=== PATIENT | female | born 1975 | race African-American/Black ===

== ENCOUNTER → 2017-06-29 | Outpatient (CLI) | payer MEDICARE, MEDICAID ==
--- NOTE | 2017-06-29 15:52 | RADIOLOGY REPORT (SQ) ---
EXAM DESCRIPTION: CHEST PA/LATERAL COMPLETED DATE/TIME: 06/29/2017 3:22 pm REASON FOR STUDY: COUGH COMPARISON: 08/02/2015 EXAM PARAMETERS: NUMBER OF VIEWS: two views TECHNIQUE: Digital Frontal and Lateral radiographic views of the chest acquired. RADIATION DOSE: NA LIMITATIONS: none FINDINGS: LUNGS AND PLEURA: Stable areas of scarring in the left lower lobe. MEDIASTINUM AND HILAR STRUCTURES: No masses or contour abnormalities. HEART AND VASCULAR STRUCTURES: Heart normal size. No evidence for failure. BONES: No acute findings. HARDWARE: Clips left hilum. OTHER: No other significant finding. IMPRESSION: No acute findings in the chest. TECHNICAL DOCUMENTATION: JOB ID: [id number] [employer]- All Rights Reserved
== END ==
LOC: OD 15:02
PROVIDERS: ATTEND Physician Assistant
DX: R05 Cough (principal)
CPT/HCPCS: 71020

== ENCOUNTER → 2020-08-26 | Outpatient (CLI) | payer MEDICARE, MEDICAID ==
--- NOTE | 2020-08-26 16:27 | RADIOLOGY REPORT (SQ) ---
EXAM DESCRIPTION: CHEST PA/LATERAL IMAGES COMPLETED DATE/TIME: 08/26/2020 4:16 pm REASON FOR STUDY: (R05) COUGH COMPARISON: 08/02/2015. EXAM PARAMETERS: NUMBER OF VIEWS: two views TECHNIQUE: Digital Frontal and Lateral radiographic views of the chest acquired. RADIATION DOSE: NA LIMITATIONS: none FINDINGS: LUNGS AND PLEURA: Mild scarring in the left base. No evidence of pulmonary edema or pneum onia. MEDIASTINUM AND HILAR STRUCTURES: No masses or contour abnormalities. HEART AND VASCULAR STRUCTURES: Heart normal size. No evidence for failure. BONES: No acute findings. HARDWARE: None in the chest. OTHER: No other significant finding. IMPRESSION: NO SIGNIFICANT RADIOGRAPHIC FINDING IN THE CHEST. TECHNICAL DOCUMENTATION: JOB ID: [id number] 2010 [employer]- All Rights Reserved Reading location - IP/workstation name: [email or web address]
[2020-08-26 16:52] LABS: ABSOLUTE BASOPHILS # (AUTO) 0.1 10^3/uL (0.0-0.2); ABSOLUTE EOSINOPHILS # (AUTO) 0.1 10^3/uL (0.0-0.6); ABSOLUTE LYMPHOCYTES (AUTO) 3.1 10^3/uL (0.5-4.7); ABSOLUTE MONOCYTES (AUTO) 0.4 10^3/uL (0.1-1.4); ABSOLUTE NEUT (AUTO) 5.6 10^3/uL (1.7-8.2); BASOPHILS % (AUTO) 0.6 % (0-2); EOSINOPHILS % (AUTO) 0.9 % (0-6); HEMATOCRIT 37.2 % (36.0-47.0); LYMPHOCYTES % (AUTO) 33.6 % (13-45); MEAN CORPUSCULAR HEMOGLOBIN 22.1 pg (27.0-33.4); MEAN CORPUSCULAR HGB CONC 32.4 g/dL (32.0-36.0); MEAN CORPUSCULAR VOLUME 68 fl (80-97); MONOCYTES % (AUTO) 3.9 % (3-13); PLATELET COUNT 234 10^3/uL (150-450); RED BLOOD COUNT 5.45 10^6/uL (3.72-5.28); RED CELL DISTRIBUTION WIDTH 16.3 % (11.5-14.0); TOTAL CELLS COUNTED % (AUTO) 100 %; WHITE BLOOD COUNT 9.1 10^3/uL (4.0-10.5)
[2020-08-26 17:08] LABS: ALBUMIN 3.7 g/dL (3.5-5.0); ALKALINE PHOSPHATASE 70 U/L (38-126); ANION GAP 9 (5-19); ASPARTATE AMINO TRANSFERASE 15 U/L (14-36); BILIRUBIN,DIRECT 0.2 mg/dL (0.0-0.4); BILIRUBIN,TOTAL 0.5 mg/dL (0.2-1.3); BLOOD UREA NITROGEN 4 mg/dL (7-20); CALCIUM 9.2 mg/dL (8.4-10.2); CARBON DIOXIDE 27 mmol/L (22-30); CHLORIDE 103 mmol/L (98-107); GLUCOSE 113 mg/dL (75-110); POTASSIUM 3.8 mmol/L (3.6-5.0); TOTAL PROTEIN 6.1 g/dL (6.3-8.2)
== END ==
LOC: OD 15:40
PROVIDERS: ATTEND Physician Assistant
DX: R06.02 Shortness of breath (principal); R05 Cough
CPT/HCPCS: 36415; 71046; 80053; 84484; 85025; 85379

== ENCOUNTER → 2020-09-03 | Outpatient (CLI) | payer MEDICARE, MEDICAID ==
--- NOTE | 2020-09-03 12:16 | RADIOLOGY REPORT (SQ) ---
EXAM DESCRIPTION: CT HEAD WITHOUT IMAGES COMPLETED DATE/TIME: 09/03/2020 12:00 pm REASON FOR STUDY: R51.9 HEADACHE, UNSPECIFIED, R26.89 OTHER ABNORMALITIES OF GAIT AND MOBILIT R51.9 HEADACHE, UNSPECIFIED R26.89 OTHER ABNORMALITIES OF GAIT AND MOBILITY COMPARISON: None. TECHNIQUE: Axial images acquired through the brain without intravenous contrast. Images reviewed wi th bone, brain and subdural windows. Additional sagittal and coronal reconstructions were generated. Images stored on PACS. All CT scanners at this facility use dose modulation, iterative reconstruction, and/or weight based d osing when appropriate to reduce radiation dose to as low as reasonably achievable (ALARA). [facility]: Dose Right [facility]: CareDose [facility]: Dose Right [facility]: Teradose 4D [facility]: Vimagino RADIATION DOSE: CT Rad equipment meets quality standard of care and radiation dose reduction techniq ues were employed. CTDIvol: 48.6 mGy. DLP: 856 mGy-cm. mGy. LIMITATIONS: None. FINDINGS: VENTRICLES: Normal size and contour. CEREBRUM: No masses. No hemorrhage. No midline shift. No evidence for acute infarction. Normal gra y/white matter differentiation. No areas of low density in the white matter. CEREBELLUM: No masses. No hemorrhage. No alteration of density. No evidence for acute infarction. EXTRAAXIAL SPACES: No fluid collections. No masses. ORBITS AND GLOBE: No intra- or extraconal masses. Normal contour of globe without masses. CALVARIUM: No fracture. PARANASAL SINUSES: No fluid or mucosal thickening. SOFT TISSUES: No mass or hematoma. OTHER: No other significant finding. IMPRESSION: NORMAL BRAIN CT WITHOUT CONTRAST. EVIDENCE OF ACUTE STROKE: NO. COMMENT: Quality ID # [id number]: Final reports with documentation of one or more dose reduction techniques (e.g., Automated exposure control, adjustment of the mA and/or kV according to patient size, use of iterative reconstruction technique) TECHNICAL DOCUMENTATION: JOB ID: [id number] 2010 [employer]- All Rights Reserved Reading location - IP/workstation name: [email or web address]
== END ==
LOC: RAD 11:27
PROVIDERS: ATTEND Physician Assistant
DX: R51.9 Headache, unspecified (principal); R26.89 Other abnormalities of gait and mobility
CPT/HCPCS: 70450

== ENCOUNTER 2020-10-11 20:20 | Emergency (ER) | payer MEDICARE, MEDICAID ==
--- NOTE | 2020-10-11 21:44 | ER Document Report ---
ED Medical Screen (RME) - General Chief Complaint: Chest Pain > 30 Stated Complaint: SHOULDER PAIN, NECK PAIN Time Seen by Provider: 10/11/20 21:37 Primary Care Provider: WAQAR DEVRIES PA [Primary Care Provider] - Follow up as needed Mode of Arrival: Ambulatory Information source: Patient Notes: Patient is a 45-year-old female comes emergency room complaining of left-sided anterior chest pain with radiation to the neck shoulder back and arm. Patient has had a recent significant past medical history and that Dr. Tariq had placed her on a Holter monitor on this past Wednesday she turned it in on Wednesday. According to patient he saw a couple of abnormalities there that he referred her over to [facility] and they she has not heard back from them as of yet. Patient states that what started her with Dr. Tariq and the Holter monitor is that she had this discomfort in her chest. She denies any feelings of heart racing but she just does not have felt right. She denies any family history of heart problems. Patient does admit to smoking. She has not been on any long trips or have injury to her lower extremities but does state that she has had some bilateral lower extremity swelling. Physical examination: Patient is a well-nourished well-developed 45-year-old female no apparent distress on examination. Cardiac: Patient shows a rate of 94 bpm on monitor with no murmurs auscultated. Patient's blood pressure is 157/88. Lungs: Bilateral breath sounds breath sounds increased clear to auscultation. Abdomen: Bowel sounds are present 4 quads nontender to palpate. Chest: Palpation of patient's anterior chest the shoulder and neck does not show any reproducible tenderness. I have greeted and performed a rapid initial assessment of this patient. A comprehensive ED assessment and evaluation of the patient, analysis of test results and completion of the medical decision making process will be conducted by additional ED providers. Dictation of this chart was performed using voice recognition software; therefore, there may be some unintended grammatical errors. TRAVEL OUTSIDE OF THE [place] IN LAST 30 DAYS: No - Related Data Allergies/Adverse Reactions: No Known Allergies Allergy (Unverified 03/26/14 20:28) Home Medications: atenolol 50mg. simvistatin 40mg. lamictal 25mg. latudia 20mg. klonazapam 1mg prn. folic acid. b12 shots. vit d. motrin 800mg prn Past Medical History - Social History Chew tobacco use (# tins/day): No Frequency of alcohol use: Occasional Drug Abuse: Marijuana - Past Medical History Cardiac Medical History: Reports: Hx Hypertension Pulmonary Medical History: Reports: Hx Asthma Psychiatric Medical History: Reports: Hx Bipolar Disorder, Hx Depression Past Surgical History: Reports: Hx Section, Hx Orthopedic Surgery Physical Exam - Vital signs Vitals: Temp Pulse Resp BP Pulse Ox 98.2 F 94 20 151/88 H 100 10/11/20 20:37 10/11/20 20:37 10/11/20 20:37 10/11/20 20:37 10/11/20 20:37 Course - Vital Signs Vital signs: Temp Pulse Resp BP Pulse Ox 98.2 F 94 20 151/88 H 100 10/11/20 21:22 10/11/20 20:37 10/11/20 20:37 10/11/20 20:37 10/11/20 20:37 Doctor's Discharge - Discharge Referrals: WAQAR DEVRIES PA [Primary Care Provider] - Follow up as needed
[2020-10-11 22:04] LABS: ABSOLUTE BASOPHILS # (AUTO) 0.1 10^3/uL (0.0-0.2); ABSOLUTE EOSINOPHILS # (AUTO) 0.2 10^3/uL (0.0-0.6); ABSOLUTE LYMPHOCYTES (AUTO) 3.8 10^3/uL (0.5-4.7); ABSOLUTE MONOCYTES (AUTO) 0.8 10^3/uL (0.1-1.4); ABSOLUTE NEUT (AUTO) 7.9 10^3/uL (1.7-8.2); BASOPHILS % (AUTO) 0.5 % (0-2); EOSINOPHILS % (AUTO) 1.3 % (0-6); HEMATOCRIT 37.4 % (36.0-47.0); MEAN CORPUSCULAR VOLUME 69 fl (80-97); MONOCYTES % (AUTO) 6.5 % (3-13); PLATELET COUNT 240 10^3/uL (150-450); RED BLOOD COUNT 5.43 10^6/uL (3.72-5.28); RED CELL DISTRIBUTION WIDTH 16.3 % (11.5-14.0); SEGMENTED NEUTROPHILS % (AUTO) 61.7 % (42-78); TOTAL CELLS COUNTED % (AUTO) 100 %; WHITE BLOOD COUNT 12.8 10^3/uL (4.0-10.5)
[2020-10-11 22:09] LABS: APPEARANCE,URINE SLIGHTLY-CLOUDY; BILIRUBIN,URINE NEGATIVE (NEGATIVE); COLOR,URINE YELLOW; GLUCOSE, URINE NEGATIVE (NEGATIVE); KETONES,URINE NEGATIVE (NEGATIVE); LEUKOCYTE ESTERASE,URINE NEGATIVE (NEGATIVE); NITRITE,URINE NEGATIVE (NEGATIVE); PROTEIN,URINE NEGATIVE (NEGATIVE); UROBILINOGEN,URINE NEGATIVE mg/dL (<2.0)
[2020-10-11 22:21] LABS: ALBUMIN 4.2 g/dL (3.5-5.0); ALKALINE PHOSPHATASE 67 U/L (38-126); ANION GAP 7 (5-19); ASPARTATE AMINO TRANSFERASE 14 U/L (14-36); BILIRUBIN,TOTAL 0.3 mg/dL (0.2-1.3); BLOOD UREA NITROGEN 7 mg/dL (7-20); CALCIUM 9.9 mg/dL (8.4-10.2); CARBON DIOXIDE 30 mmol/L (22-30); CHLORIDE 104 mmol/L (98-107); GLUCOSE 104 mg/dL (75-110); POTASSIUM 3.6 mmol/L (3.6-5.0); TOTAL PROTEIN 7.4 g/dL (6.3-8.2)
--- NOTE | 2020-10-11 22:38 | RADIOLOGY REPORT (SQ) ---
EXAM DESCRIPTION: CHEST SINGLE VIEW, October 11, 2020 9:59 PM CLINICAL HISTORY: Chest pain COMPARISON: None FINDINGS: Cardiac silhouette is within normal limits. There is no focal parenchymal or pleural disease. There is no acute osseous process visualized. IMPRESSION: No evidence of acute cardiopulmonary disease.
--- NOTE | 2020-10-12 03:02 | ER Document Report ---
ED General - General Chief Complaint: Chest Pain > 30 Stated Complaint: SHOULDER PAIN, NECK PAIN Time Seen by Provider: 10/11/20 21:37 Primary Care Provider: WAQAR DEVRIES PA [Primary Care Provider] - Follow up as needed BHAVIK BREWSTER MD [ACTIVE STAFF] - 10/18/20 Mode of Arrival: Ambulatory TRAVEL OUTSIDE OF THE [place] IN LAST 30 DAYS: No - HPI Onset: Just prior to arrival Onset/Duration: Sudden Quality of pain: Sharp Severity: Moderate Context: This is a 45-year-old female presenting to the emergency department complaining of left-sided anterior chest pain along with radiation into her neck, shoulder on the left side left back and left upper extremity. Patient states she has a history of high blood pressure and hyperlipidemia. Patient states that she has been placed on a Holter monitor recently and is scheduled to see Dr. Brewster with cardiology within the next few days. Patient states she is not having any discomfort at this time. Patient denies alleviating or exacerbating factors. Patient states that she is a smoker. Patient denies fever, chills, shortness of breath, history of COVID-19 infection, known exposure to Covid positive persons or persons under investigation for Covid. Patient denies history of DVT or PE. Patient states that the symptoms lasted for a few minutes and then resolved on their own. Associated symptoms: Other - See HPI Exacerbated by: Other - See HPI Relieved by: Other - See HPI Recently seen / treated by doctor: Yes - Related Data Allergies/Adverse Reactions: No Known Allergies Allergy (Unverified 03/26/14 20:28) Home Medications: atenolol 50mg. simvistatin 40mg. lamictal 25mg. latudia 20mg. klonazapam 1mg prn. folic acid. b12 shots. vit d. motrin 800mg prn Past Medical History - General Information source: Patient - Social History Smoking Status: Current Every Day Smoker Chew tobacco use (# tins/day): No Frequency of alcohol use: Occasional Drug Abuse: Marijuana Family History: Reviewed & Not Pertinent - Past Medical History Cardiac Medical History: Reports: Hx Hypertension Pulmonary Medical History: Reports: Hx Asthma Psychiatric Medical History: Reports: Hx Bipolar Disorder, Hx Depression Past Surgical History: Reports: Hx Section, Hx Orthopedic Surgery Review of Systems - Review of Systems Notes: Review of systems as below unless otherwise stated in HPI. CONSTITUTIONAL [No] fever, [No] chills. EYES [No] eye pain. ENT [No] URI symptoms, [No] sore throat, [No] ear pain. CARDIOVASCULAR [+] chest pain, [No] palpitations, [No] edema. RESPIRATORY [No] Cough, [No] SOB, [No] wheezing. GASTROINTESTINAL [No] abdominal pain, [No] nausea, [No] Diarrhea, [No] Vomiting, [No] constipation, [No] melena, [No] rectal bleeding. GENITOURINARY [No] dysuria, [No] urinary frequency, [No] hematuria, [No] urinary urgency, [No] vaginal discharge, [No] vaginal bleeding. MUSCULOSKELETAL [+] Back pain, shoulder neck and arm pain SKIN [No] Rash. NEUROLOGIC [No] Headache, [No] recent seizures, [No] paralysis,[No] parathesias. ENDOCRINE [No] polyuria. HEMO/LYMPATIC [No] easy brusing PSYCHIATRIC [No] depression. Physical Exam - Vital signs Vitals: Temp Pulse Resp BP Pulse Ox 98.2 F 94 20 151/88 H 100 10/11/20 20:37 10/11/20 20:37 10/11/20 20:37 10/11/20 20:37 10/11/20 20:37 - Notes Notes: CONSTITUTIONAL [Vital signs reviewed, Patient appears comfortable, Alert and oriented X 3, Normal stature.] HEAD [Atraumatic, Normocephalic.] EYES [Eyes are normal to inspection, No discharge from eyes, Extraocular muscles intact, Sclera are normal, Conjunctiva are normal.] ENT [External ears normal to inspection, Nose examination normal, Mouth normal to in spection.] NECK [Normal ROM, No jugular venous distention, No meningeal signs, ] RESPIRATORY CHEST [Chest is nontender, Breath sounds normal, No respiratory distress.] CARDIOVASCULAR [RRR, No murmurs, Normal S1 S2, No rub, No gallop.] ABDOMEN [Abdomen is nontender, No pulsatile masses, No other masses, Bowel sounds normal, No distension, No peritoneal signs, No hernias.] BACK [There is no CVA Tenderness, There is no tenderness to palpation, Normal inspection.] UPPER EXTREMITY [Inspection normal, No cyanosis, No clubbing, No edema, LOWER EXTREMITY [Inspection normal, No cyanosis, No clubbing, No edema, No calf tenderness, NEURO [No focal motor deficits, No focal sensory deficits, Speech normal.] SKIN [Skin is warm, Skin is dry, Skin is normal color.] PSYCHIATRIC [Normal affect. ] Course - Re-evaluation Re-evalutation: 10/12/20 03:09 Results of ED MSE discussed with patient. When asked if all of the patient's questions were answered and all of her concerns were addressed during this visit, patient answered in the affirmative. Emergency signs and symptoms, reasons to return to the emergency department discussed with patient. - Vital Signs Vital signs: Temp Pulse Resp BP Pulse Ox 98.2 F 66 20 133/80 H 99 10/12/20 01:23 10/12/20 02:15 10/12/20 01:23 10/12/20 02:15 10/12/20 01:23 - Laboratory Result Diagrams: 10/11/20 21:40 10/11/20 21:40 Laboratory results interpreted by me: 10/11/20 10/11/20 21:40 21:50 WBC 12.8 H RBC 5.43 H MCV 69 L MCH 22.0 L RDW 16.3 H Urine Blood MODERATE H - Diagnostic Test Radiology reviewed: Reports reviewed - EKG Interpretation by Me Additional EKG results interpreted by me: 10/12/20 03:09 EKG obtained on 10/11/2020 at 2210 hrs. was interpreted by this MD. Findings: Normal sinus rhythm, rate 67, normal axis, ND interval appears to be within normal limits, P waves preceding arrest complexes, QRS complexes appear narrow, QTC is 427, there are no obvious patterns of ST segment elevation, depression or reciprocal changes seen to suggest acute myocardial ischemia or infarction. Impression: Normal sinus rhythm with nonspecific ST segments. There is no prior EKG available for comparison. Discharge - Discharge Clinical Impression: Chest pain Qualifiers: Chest pain type: other chest pain Qualified Code(s): R07.89 - Other chest pain Condition: Stable Disposition: HOME, SELF-CARE Additional Instructions: Return to the Emergency Department without delay if any worse. Your evaluation in the emergency department today revealed no evidence of anything acute going on with your heart or your heart being related to the shoulder and neck discomfort you experienced. As discussed, keep track of your blood pressure 3 times a day with your new blood pressure machine. Be certain to follow-up with Dr. Brewster as planned. HOME CARE INSTRUCTIONS & INFORMATION: Thank you for choosing us for your medical needs. We hope you're satisfied with the care you received. After you leave, you must properly care for your problem and, at the same time, observe its progress. Any condition can change. Some illnesses can change rapidly over hours or days. If your condition worsens, return to the Emergency Department or see your physician promptly. ABOUT YOUR X-RAYS AND EKG'S: If you had an EKG or X-rays taken, they have been read by the Emergency Physician. The X-rays and EKG's will also be read by a Radiologist or Business Administration Program Chair within 24 hours. If discrepancies are noted, you will be notified by telephone. Please be certain the ED has a correct telephone number & address where you can be reached. Also, realize that some fractures or abnormalities do not show up on initial X-rays. If your symptoms continue, see your physician. ABOUT YOUR LABORATORY TEST: If you had laboratory tests, the results have been reviewed by the Emergency Physician. Some test results (for example cultures) may not be available for several days. You will be contacted if any test result shows you need additional treatment. Please be certain the ED has a correct telephone number and address where you can be reached. ABOUT YOUR MEDICATIONS: You will receive instructions on how to take your medicine on the prescription label you receive. Additional information may be provided by the Pharmacy. If you have questions afterwards, call the ED for clarification or further instructions. Some prescribed medications may cause drowsiness. Do not perform tasks such as driving a car or operating machinery without consulting your Pharmacist. If you feel you need a refill of pain medication, your condition will need re-evaluation. Please do not call for a refill of any medication. ABOUT YOUR SIGNATURE: Signature of this document acknowledges to followin. Understanding that you received emergency treatment and that you may be released before al medical problems are known or treated. Please be certain the ED has a correct phone number & address where you can be reached. 2. Acknowledgement that you will arrange for follow-up care as recommended. 3. Authorization for the Emergency Physician to provide information to your follow-up Physician in order to maximize your care. AT ANY TIME, IF YOUR SYMPTOMS CHANGE SIGNIFICANTLY OR WORSEN OR YOU DEVELOP NEW SYMPTOMS, RETURN TO THE EMERGENCY DEPARTMENT IMMEDIATELY FOR RE-EVALUATION. OUR GOAL IS TO PROVIDE EXCELLENT MEDICAL CARE! WE HOPE THAT WE HAVE MET YOUR EXPECTATIONS DURING YOUR EMERGENCY DEPARTMENT VISIT AND THAT YOU FEEL YOU HAVE RECEIVED EXCELLENT CARE! Chest Pain of Unclear Cause The exact cause of your chest pain isn't clear. Fortunately, there is no evidence of a dangerous medical condition. Further testing may be required to find the source of the pain. Most often, we find that this pain is coming from the chest wall -- the muscles or rib joints in the chest. But chest pain can come from the lung and lung lining, the esophagus, the heart valves or heart lining, and even the stomach or gallbladder. Rest. Eat lightly until the pain is gone. We may prescribe medicine for pain and inflammation. You should call the physician immediately if the pain radiates to the shoulder, jaw or arms; if you start to run a fever or develop a cough; or if you develop shortness of breath, or other new or alarming symptoms. Referrals: WAQAR DEVRIES PA [Primary Care Provider] - Follow up as needed BHAVIK BREWSTER MD [ACTIVE STAFF] - 10/18/20
[2020-10-12 03:09] VITALS: BP 134/84
== END 2020-10-12 03:09 | disposition home or self-care (01) ==
LOC: ER 20:20
DX: R07.89 Other chest pain (principal); M25.512 Pain in left shoulder; M54.2 Cervicalgia; M54.9 Dorsalgia, unspecified; M79.602 Pain in left arm; F17.200 Nicotine dependence, unspecified, uncomplicated; Z20.828 Contact with and (suspected) exposure to other viral communicable diseases; Z79.899 Other long term (current) drug therapy; I10 Essential (primary) hypertension; J45.909 Unspecified asthma, uncomplicated
CPT/HCPCS: 36415; 71045; 80053; 81001; 81025; 84484; 85025; 85379; 87086; 99284

== ENCOUNTER 2020-11-04 23:34 | Observation (INO) | payer MEDICARE, MEDICAID ==
[2020-11-05 01:23] LABS: ALKALINE PHOSPHATASE 71 U/L (38-126); ANION GAP 5 (5-19); ASPARTATE AMINO TRANSFERASE 15 U/L (14-36); BILIRUBIN,DIRECT 0.1 mg/dL (0.0-0.4); BILIRUBIN,TOTAL 0.4 mg/dL (0.2-1.3); BLOOD UREA NITROGEN 7 mg/dL (7-20); CALCIUM 9.9 mg/dL (8.4-10.2); CARBON DIOXIDE 33 mmol/L (22-30); CHLORIDE 101 mmol/L (98-107); CREATINE KINASE 70 U/L (30-135); GLUCOSE 88 mg/dL (75-110); POTASSIUM 3.9 mmol/L (3.6-5.0); TOTAL PROTEIN 7.4 g/dL (6.3-8.2)
[2020-11-05 01:27] LABS: ABSOLUTE BASOPHILS # (AUTO) 0.2 10^3/uL (0.0-0.2); ABSOLUTE EOSINOPHILS # (AUTO) 0.3 10^3/uL (0.0-0.6); ABSOLUTE LYMPHOCYTES (AUTO) 4.9 10^3/uL (0.5-4.7); ABSOLUTE MONOCYTES (AUTO) 0.8 10^3/uL (0.1-1.4); ABSOLUTE NEUT (AUTO) 5.9 10^3/uL (1.7-8.2); BASOPHILS % (AUTO) 1.3 % (0-2); EOSINOPHILS % (AUTO) 2.3 % (0-6); HEMATOCRIT 39.5 % (36.0-47.0); HEMOGLOBIN 12.7 g/dL (12.0-15.5); LYMPHOCYTES % (AUTO) 40.3 % (13-45); MEAN CORPUSCULAR HEMOGLOBIN 21.9 pg (27.0-33.4); MEAN CORPUSCULAR HGB CONC 32.1 g/dL (32.0-36.0); MEAN CORPUSCULAR VOLUME 68 fl (80-97); MONOCYTES % (AUTO) 6.8 % (3-13); PLATELET COUNT 246 10^3/uL (150-450); RED BLOOD COUNT 5.81 10^6/uL (3.72-5.28); RED CELL DISTRIBUTION WIDTH 16.2 % (11.5-14.0); SEGMENTED NEUTROPHILS % (AUTO) 49.3 % (42-78); TOTAL CELLS COUNTED % (AUTO) 100 %; WHITE BLOOD COUNT 12.1 10^3/uL (4.0-10.5)
[2020-11-05 01:39] LABS: CREATINE KINASE MB < 0.22 ng/mL (<4.55); TROPONIN I < 0.012 ng/mL
--- NOTE | 2020-11-05 01:42 | RADIOLOGY REPORT (SQ) ---
EXAM DESCRIPTION: CHEST 2 VIEWS CLINICAL HISTORY: 45 years Female, CHEST TIGHTNESS COMPARISON: Single view of the chest October 11, 2020 FINDINGS: Lungs: There is blunting of the left costophrenic angle with linear volume loss suggestive of scarring. The appearance is stable. No focal consolidation. No pneumothorax. Mediastinum: Cardiac and mediastinal silhouette are unchanged. Bones: There is distortion the left posterior lateral sixth and seventh ribs suggesting previous thoracotomy. The appearance is stable. IMPRESSION: No acute process. No significant interval change.
[2020-11-05] MEDS ORDERED: ASPIRIN 81 MG TABLET, CHEWABLE PO ONE (03:27)
[2020-11-05] MEDS ORDERED: ACETAMINOPHEN 325 MG TABLET PO ONE (03:28)
--- NOTE | 2020-11-05 04:02 | ER Document Report ---
ED General - General Chief Complaint: Irregular Pulse Stated Complaint: IRREGULAR HEART BEAT Notes: 45-year-old female smoker with hypertension and hyperlipidemia presents with chest pain. Patient says she has been having intermittent chest pain that she describes as left-sided pressure without radiation sometimes associated with exertion associated with shortness of breath but has been having more frequently and today feels worse than her prior symptoms. Patient has seen a general office worker, Dr. Delgado, and had outpatient stress and echo but has not had the results yet and has not seen him since having the tests performed. Patient says that a few months ago she was exercising at home and she is to do that without shortness of breath but now when she does basic cleaning in her house sometimes she feels short of breath. Distant thoracotomy for schwannoma without complication. Patient denies known cardiac history, DVT/PE/hypercoagulability history in self or family, recent travel/trauma/surgery/immobilization, cough or hemoptysis, exogenous estrogen use/recent , malignancy history TRAVEL OUTSIDE OF THE [place] IN LAST 30 DAYS: No - Related Data Allergies/Adverse Reactions: No Known Allergies Allergy (Unverified 03/26/14 20:28) Home Medications: ATENOLOL, KLONAZAPAM, SIMVASTATIN,ALBUTEROL INH, SYMIBCORT, LAMACTIL, LATUDA, FLONASE Past Medical History - General Information source: Patient - Social History Smoking Status: Current Every Day Smoker Family History: Reviewed & Not Pertinent - Past Medical History Cardiac Medical History: Reports: Hx Hypertension Pulmonary Medical History: Reports: Hx Asthma Psychiatric Medical History: Reports: Hx Bipolar Disorder, Hx Depression Past Surgical History: Reports: Hx Section, Hx Orthopedic Surgery Review of Systems - Review of Systems Notes: REVIEW OF SYSTEMS: CONSTITUTIONAL : Denies fever, chills, or sweats. EENT: Denies recent cold/sinus symptoms, denies throat pain CARDIOVASCULAR: + chest pain, [place] RESPIRATORY: Denies cough, +shortness of breath. GASTROINTESTINAL: Denies abdominal pain, nausea/vomiting. GENITOURINARY: Denies difficulty urinating, painful urination. FEMALE GENITOURINARY: Denies abnormal vaginal bleeding, vaginal discharge. MUSCULOSKELETAL: Denies neck pain, back pain. SKIN: Denies rash or skin lesions. HEMATOLOGIC : Denies easy bruising or bleeding. LYMPHATIC: Denies swollen, enlarged glands. NEUROLOGICAL: Denies headache, denies change in gait. PSYCHIATRIC: Denies anxiety or stress or depression. Physical Exam - Vital signs Vitals: Temp Pulse Resp BP Pulse Ox 98.2 F 74 18 140/78 H 98 11/04/20 23:58 11/04/20 23:58 11/04/20 23:58 11/04/20 23:58 11/04/20 23:58 - Notes Notes: PHYSICAL EXAMINATION: GENERAL: Well-appearing, well-nourished and in no acute distress. HEAD: Atraumatic, normocephalic. EYES: Pupils equal round and appropriate constriction, sclera anicteric, conjunctiva are normal. ENT: nares patent, moist mucous membranes. NECK: Normal range of motion, supple without lymphadenopathy LUNGS: Breath sounds clear to auscultation bilaterally and equal. No wheezes rales or rhonchi. HEART: Regular rate and rhythm without murmurs ABDOMEN: Soft, nontender, no guarding, no masses, no CVAT EXTREMITIES: Normal range of motion, no pitting or edema. No cyanosis. NEUROLOGICAL: Awake, alert, conversing appropriately, moves all extremities spontaneously. PSYCH: Normal mood, normal affect. SKIN: Warm, Dry, normal turgor, no rashes or lesions noted. Course - Re-evaluation Re-evalutation: 11/05/20 05:24 Patient very well-appearing, normal exam, normal vitals, and normal EKG. However patient has several risk factors for ACS and her story is concerning for possible ACS and given that she has had work-up recently with results currently unknown and her heart score is 4 patient merits observation with cardiology consult. Given aspirin, vitals stable, discussed with Dr. Olivas who has evalu ated patient and accepted patient to telemetry observation. Patient is PERC negative and low Wells score and thus PE can be sufficiently ruled out with PERC given low pretest probability. - Vital Signs Vital signs: Temp Pulse Resp BP Pulse Ox 97.5 F 64 20 130/84 H 100 11/05/20 06:27 11/05/20 06:27 11/05/20 06:27 11/05/20 06:27 11/05/20 06:27 - Laboratory Results Result Diagrams: 11/05/20 00:51 11/05/20 00:51 Laboratory Results Interpreted: 11/05/20 11/05/20 00:51 00:51 WBC 12.1 H RBC 5.81 H MCV 68 L MCH 21.9 L RDW 16.2 H Absolute Lymphs (auto) 4.9 H Carbon Dioxide 33 H Critical Laboratory Results Reviewed: No Critical Results - Radiology Results Critical Radiology Results Reviewed: No Critical Results - EKG Interpretation by Me Additional EKG results interpreted by me: 11/05/20 05:25 Sinus rhythm, no significant ST elevations or depressions, no significant T wave abnormalities Discharge - Discharge Clinical Impression: Chest pain Disposition: ADMITTED OBSERVATION Admitting Provider: [facility] Admitted: Telemetry
[2020-11-05] MEDS ORDERED: ONDANSETRON HCL INJ/PF 4 MG/2 ML SDV IV PRN (05:12)
[2020-11-05] MEDS ORDERED: ACETAMINOPHEN 650 MG SUPP.RECT PR PRN (05:12)
--- NOTE | 2020-11-05 05:35 | PDOC H&P ---
History of Present Illness Admission Date/PCP: DENNY BOURGEOIS Patient complains of: Chest pain History of Present Illness: GRACIELA BARRAGAN is a 45 year old female with a history of hypertension, hyperlipidemia, tobacco dependence who presents reporting chest pain which started around 10 PM before presentation. Patient reports the pain as tightness which goes to her left shoulder, 6-7/10 intensity, with no clear aggravating or relieving factor. She states that she has been having exertional chest pain for the past few months and was seen by an outside wallpaper hanger helper where she had work- ups including stress test and was placed on Holter monitor but she states that she has not been told the results yet and she has a follow-up appointment with her wallpaper hanger helper on 11/13. She denies shortness of breath, cough, dizziness, headache, nausea, vomiting, abdominal pain or any change in her bowel or urinary habits. Past Medical History Cardiac Medical History: Reports: Hypertension Pulmonary Medical History: Reports: Asthma Psychiatric Medical History: Reports: Bipolar Disorder, Depression Past Surgical History Past Surgical History: Reports: Section, Orthopedic Surgery Social History Information Source: Patient Lives with: Family Smoking Status: Current Every Day Smoker Hx Recreational Drug Use: No Drugs: None - Advance Directive Resuscitation Status: Full Code Family History Family History: Reviewed & Not Pertinent Parental Family History Reviewed: Yes Children Family History Reviewed: Yes Sibling(s) Family History Reviewed.: Yes Medication/Allergy Home Medications: Atenolol [Tenormin 50 mg Tablet] 50 mg PO DAILY 03/26/14 Ferrous Sulfate [Albafort] 325 mg PO DAILY 03/26/14 Lamotrigine [Lamictal] 100 mg PO BID 03/26/14 Simvastatin [Zocor 20 mg Tablet] 20 mg PO DAILY 03/26/14 Zolpidem Tartrate [Ambien 10 mg Tablet] 10 mg PO QHS 03/26/14 Allergies/Adverse Reactions: No Known Allergies Allergy (Unverified 03/26/14 20:28) Review of Systems Constitutional: ABSENT: chills, fever(s), headache(s), weight gain, weight loss Eyes: ABSENT: visual disturbances Ears: ABSENT: hearing changes Nose, Mouth, and Throat: ABSENT: mouth pain, sore throat Cardiovascular: PRESENT: as per HPI Respiratory: PRESENT: as per HPI Gastrointestinal: ABSENT: abdominal pain, constipation, diarrhea, hematemesis, hematochezia, nausea, vomiting Genitourinary: ABSENT: dysuria, hematuria Musculoskeletal: ABSENT: joint swelling Integumentary: ABSENT: rash, wounds Neurological: ABSENT: abnormal gait, abnormal speech, confusion, dizziness, focal weakness, syncope Psychiatric: ABSENT: anxiety, depression, homidical ideation, suicidal ideation Endocrine: ABSENT: cold intolerance, heat intolerance, polydipsia, polyuria Hematologic/Lymphatic: ABSENT: easy bleeding, easy bruising Physical Exam Vital Signs: Temp Pulse Resp BP Pulse Ox 98.2 F 74 18 140/78 H 98 11/04/20 23:58 11/04/20 23:58 11/04/20 23:58 11/04/20 23:58 11/04/20 23:58 Intake & Output 11/03/20 11/04/20 11/05/20 06:59 06:59 06:59 Weight 93.3 kg Additional comments: GENERAL APPEARANCE: Alert and oriented x3, in no acute distress HEENT: Normocephalic and atraumatic. No scleral icterus. Moist oral mucosa NECK: Supple. No lymphadenopathy or tenderness. No carotid bruit. No JVD CHEST: Symmetric. Nontender to palpation. LUNGS: Clear with good air entry bilaterally. No wheezing or crackles HEART: Regular rate and rhythm with normal S1 and S2. No murmurs, gallops, or rubs. ABDOMEN:soft, active bowel sounds, no direct or rebound tenderness. No organomegaly detected. EXTREMITIES: No cyanosis, clubbing, or edema. MUSCULOSKELETAL: No deformity, atrophy or swelling noted PSYCHIATRIC: Recent and remote memory is intact. Appropriate mood and affect. SKIN: Warm, dry, and well perfused. No lesions or rashes are noted. NEUROLOGIC: No focal sensory or motor deficits are noted. Results Laboratory Results: 11/05/20 00:51 11/05/20 00:51 11/05/20 11/05/20 11/05/20 00:51 00:51 00:51 WBC 12.1 H RBC 5.81 H Hgb 12.7 Hct 39.5 MCV 68 L MCH 21.9 L MCHC 32.1 RDW 16.2 H Plt Count 246 Seg Neutrophils % 49.3 Sodium 139.3 Potassium 3.9 Chloride 101 Carbon Dioxide 33 H Anion Gap 5 BUN 7 Creatinine 0.65 Est GFR ( Amer) > 60 Glucose 88 Calcium 9.9 Total Bilirubin 0.4 AST 15 Alkaline Phosphatase 71 Total Protein 7.4 Albumin 4.0 Serum HCG, Qual NEGATIVE 11/05/20 11/05/20 11/05/20 00:51 00:51 03:46 Creatine Kinase 70 CK-MB (CK-2) < 0.22 Troponin I < 0.012 < 0.012 Impressions: Chest X-Ray 11/05/20 00:00 IMPRESSION: No acute process. No significant interval change. Assessment and Plan - Diagnosis (1) Chest pain Is this a current diagnosis for this admission?: Yes Plan: Patient presents with few hours duration of chest pain Has multiple risk factors including hypertension, hyperlipidemia and tobacco use Has a heart score of 4 Initial cardiac enzyme was negative EKG showed sinus rhythm with no ST-T wave changes Patient was valuated by cardiology as an outpatient and currently awaiting for stress test result Continue trending cardiac enzyme and EKG every 6 hourly Monitor on telemetry If 3 sets of cardiac enzymes are negative, will call outpatient cardiology ([phone]) for the stress test result in the morning (2) Hypertension Is this a current diagnosis for this admission?: Yes Plan: Blood pressure is within acceptable range Continue atenolol On low-sodium diet (3) Hyperlipidemia Is this a current diagnosis for this admission?: Yes Plan: Will obtain lipid panel Placed her on atorvastatin (4) Tobacco dependence Is this a current diagnosis for this admission?: Yes Plan: Patient smokes 1 pack/day Encouraged her to quit or cut down smoking Provide nicotine patch as needed while inpatient (5) Bipolar disorder Is this a current diagnosis for this admission?: Yes Plan: Continue home medications (6) Obesity (BMI 30.0-34.9) Is this a current diagnosis for this admission?: Yes Plan: Continue dietary counseling Encourage regular exercise to attain optimal weight - Time Time Spent with patient: 35 or more minutes Total Critical Time (Minutes): 40 Smoking Cessation Education: 3 to 10 minutes Medications reviewed and adjusted accordingly: Yes Anticipated Discharge Disposition: Home, Self Care Anticipated Discharge Timeframe: within 48 hours - Inpatient Certification Based on my medical assessment, after consideration of the patient's comorbidities, presenting symptoms, or acuity I expect that the services needed warrant INPATIENT care.: Yes I certify that my determination is in accordance with my understanding of Medicare's requirements for reasonable and necessary INPATIENT services [42 CFR 412.3e].: Yes Medical Necessity: Need Close Monitoring Due to Risk of Patient Decompensation, Need For Continuous Telemetry Monitoring, Risk of Complication if Not Cared For in Hospital Post Hospital Care: D/C or Transfer Summary
--- NOTE | 2020-11-05 07:17 | EKG REPORT ---
SEVERITY:- BORDERLINE ECG - SINUS RHYTHM NONSPECIFIC ST-T CHANGES- INFERIOR LEADS : Confirmed by: Timmy Carrera MD 05-Nov-2020 07:16:33
[2020-11-05] MEDS ORDERED: ATENOLOL 50 MG TABLET PO SCH (10:00)
[2020-11-05] MEDS ORDERED: FAMOTIDINE 20 MG TABLET PO SCH (10:00)
[2020-11-05] MEDS ORDERED: ASPIRIN 81 MG TABLET, CHEWABLE PO SCH (10:00)
[2020-11-05] MEDS ORDERED: LAMOTRIGINE 100 MG TABLET PO SCH (10:00)
[2020-11-05] MEDS ORDERED: ENOXAPARIN SODIUM INJ 40 MG/0.4 ML DISP.SYRIN SUBCUT SCH (10:00)
[2020-11-05 10:48] LABS: CHOLESTEROL 134.23 mg/dL (0-200); TRIGLYCERIDES 75 mg/dL (<150)
[2020-11-05 10:58] LABS: DIRECT LDL 76 mg/dL (<100)
[2020-11-05 14:46] VITALS: BP 118/75
[2020-11-05] MEDS ORDERED: ATORVASTATIN CALCIUM 40 MG TABLET PO SCH (22:00)
--- NOTE | 2020-11-06 07:00 | PDOC DISCHARGE SUMMARY ---
Impression - Admit/DC Date/PCP Admission Date/Primary Care Provider: 11/05/20 05:19 DENNY BOURGEOIS Discharge Date: 11/05/20 - Assessment Summary: (1) Chest pain Is this a current diagnosis for this admission?: Yes Plan: Patient presents with few hours duration of chest pain Has multiple risk factors including hypertension, hyperlipidemia and tobacco use Has a heart score of 4 Initial cardiac enzyme was negative EKG showed sinus rhythm with no ST-T wave changes Patient was valuated by cardiology as an outpatient and currently awaiting for stress test result Continue trending cardiac enzyme and EKG every 6 hourly Monitor on telemetry If 3 sets of cardiac enzymes are negative, will call outpatient cardiology ([phone]) for the stress test result in the morning (2) Hypertension Is this a current diagnosis for this admission?: Yes Plan: Blood pressure is within acceptable range Continue atenolol On low-sodium diet (3) Hyperlipidemia Is this a current diagnosis for this admission?: Yes Plan: Will obtain lipid panel Placed her on atorvastatin (4) Tobacco dependence Is this a current diagnosis for this admission?: Yes Plan: Patient smokes 1 pack/day Encouraged her to quit or cut down smoking Provide nicotine patch as needed while inpatient (5) Bipolar disorder Is this a current diagnosis for this admission?: Yes Plan: Continue home medications (6) Obesity (BMI 30.0-34.9) Is this a current diagnosis for this admission?: Yes Plan: Continue dietary counseling Encourage regular exercise to attain optimal weight - Additional Information Resuscitation Status: Full Code Discharge Diet: As Tolerated Discharge Activity: Activity As Tolerated, Balance Activity w/Rest Referrals: WAQAR DEVRIES PA [Primary Care Provider] - 11/06/20 1:15 pm (Telehealth appointment.) BHAVIK DELGADO MD [ACTIVE STAFF] - 11/13/20 2:00 pm Prescriptions: Aspirin [Aspirin 81 mg Chewable Tablet] 81 mg PO DAILY 30 Days #1 pkg Home Medications: Atenolol [Tenormin 50 mg Tablet] 50 mg PO DAILY 03/26/14 Albuterol Sulfate [Albuterol Sulfate Hfa] 1 puff IH Q4HP PRN 11/05/20 Aspirin [Aspirin 81 mg Chewable Tablet] 81 mg PO DAILY 30 Days #1 pkg 11/05/20 Budesonide/Formoterol Fumarate [Symbicort HFA 80-4.5 mcg Inhaler 6.9 gm] 1 puff IH BID 11/05/20 Clonazepam [Klonopin 1 mg Tablet] 1 mg PO BID 11/05/20 Ergocalciferol (Vitamin D2) [Drisdol 50,000 unit (1.25MG) Capsule] 50,000 unit PO WALKER@1000 11/05/20 Folic Acid 1 mg PO DAILY 11/05/20 Lamotrigine [Lamictal] 25 mg PO DAILY 11/05/20 Lurasidone HCl [Latuda] 20 mg PO DAILY 11/05/20 Meclizine HCl [Antivert 12.5 mg Tablet] 12.5 mg PO DAILYP PRN 11/05/20 Simvastatin [Zocor 40 mg Tablet] 40 mg PO QHS 11/05/20 History of Present Illiness History of Present Illness: GRACIELA BARRAGAN is a 45 year old female with a history of hypertension, hyperlipidemia, tobacco dependence who presents reporting chest pain which started around 10 PM before presentation. Patient reports the pain as tightness which goes to her left shoulder, 6-7/10 intensity, with no clear aggravating or relieving factor. She states that she has been having exertional chest pain for the past few months and was seen by an outside sack repairer where she had work- ups including stress test and was placed on Holter monitor but she states that she has not been told the results yet and she has a follow-up appointment with her sack repairer on 11/13. She denies shortness of breath, cough, dizziness, headache, nausea, vomiting, abdominal pain or any change in her bowel or urinary habits. Hospital Course Hospital Course: Patient was seen and examined at bedside. She was walking around the [facility] fine with no further episode of shortness of breath. Records of her recent stress test 4 days prior and echo were obtained from Dr. Delgado's office.Stress test was negative and echo was unremarkable with a normal EF. She had 2 sets of troponin which were negative. She was advised to follow up with Dr. Delgado and she does have an appointment with them on the . She was discharged on aspirin. Physical Exam Vital Signs: Temp Pulse Resp BP Pulse Ox 97.5 F 81 20 130/84 H 100 11/05/20 14:13 11/05/20 14:13 11/05/20 14:13 11/05/20 14:13 11/05/20 14:13 Intake & Output 11/04/20 11/05/20 11/06/20 06:59 06:59 06:59 Intake Total 470 Balance 470 Weight 91 kg 91 kg General appearance: PRESENT: no acute distress, cooperative Head exam: PRESENT: atraumatic, normocephalic Eye exam: PRESENT: EOMI, PERRLA Mouth exam: PRESENT: moist Neck exam: PRESENT: full ROM Respiratory exam: PRESENT: clear to auscultation dawit, symmetrical, unlabored Cardiovascular exam: PRESENT: RRR, +S1, +S2 GI/Abdominal exam: PRESENT: normal bowel sounds, soft. ABSENT: rebound, tenderness Extremities exam: PRESENT: full ROM Musculoskeletal exam: PRESENT: full ROM Neurological exam: PRESENT: alert, awake, oriented to person, oriented to place, oriented to time, oriented to situation Psychiatric exam: PRESENT: normal mood Skin exam: PRESENT: normal color Results Laboratory Results: WBC 12.1 10^3/uL (4.0-10.5) H 11/05/20 00:51 RBC 5.81 10^6/uL (3.72-5.28) H 11/05/20 00:51 Hgb 12.7 g/dL (12.0-15.5) 11/05/20 00:51 Hct 39.5 % (36.0-47.0) 11/05/20 00:51 MCV 68 fl (80-97) L 11/05/20 00:51 MCH 21.9 pg (27.0-33.4) L 11/05/20 00:51 MCHC 32.1 g/dL (32.0-36.0) 11/05/20 00:51 RDW 16.2 % (11.5-14.0) H 11/05/20 00:51 Plt Count 246 10^3/uL (150-450) 11/05/20 00:51 Lymph % (Auto) 40.3 % (13-45) 11/05/20 00:51 [place] % (Auto) 6.8 % (3-13) 11/05/20 00:51 Eos % (Auto) 2.3 % (0-6) 11/05/20 00:51 Baso % (Auto) 1.3 % (0-2) 11/05/20 00:51 Absolute Neuts (auto) 5.9 10^3/uL (1.7-8.2) 11/05/20 00:51 Absolute Lymphs (auto) 4.9 10^3/uL (0.5-4.7) H 11/05/20 00:51 Absolute Monos (auto) 0.8 10^3/uL (0.1-1.4) 11/05/20 00:51 Absolute Eos (auto) 0.3 10^3/uL (0.0-0.6) 11/05/20 00:51 Absolute Basos (auto) 0.2 10^3/uL (0.0-0.2) 11/05/20 00:51 Seg Neutrophils % 49.3 % (42-78) 11/05/20 00:51 Sodium 139.3 mmol/L (137-145) 11/05/20 00:51 Potassium 3.9 mmol/L (3.6-5.0) 11/05/20 00:51 Chloride 101 mmol/L (98-107) 11/05/20 00:51 Carbon Dioxide 33 mmol/L (22-30) H 11/05/20 00:51 Anion Gap 5 (5-19) 11/05/20 00:51 BUN 7 mg/dL (7-20) 11/05/20 00:51 Creatinine 0.65 mg/dL (0.52-1.25) 11/05/20 00:51 Est GFR ( Amer) > 60 (>60) 11/05/20 00:51 Est GFR (MDRD) Non-Af > 60 (>60) 11/05/20 00:51 Glucose 88 mg/dL (75-110) 11/05/20 00:51 Hemoglobin A1c % 4.9 % (4.7-6.0) 11/05/20 10:17 Calcium 9.9 mg/dL (8.4-10.2) 11/05/20 00:51 Total Bilirubin 0.4 mg/dL (0.2-1.3) 11/05/20 00:51 Direct Bilirubin 0.1 mg/dL (0.0-0.4) 11/05/20 00:51 Neonat Total Bilirubin Not Reportable 11/05/20 00:51 Neonat Direct Bilirubin Not Reportable 11/05/20 00:51 Neonat Indirect Bili Not Reportable 11/05/20 00:51 AST 15 U/L (14-36) 11/05/20 00:51 ALT 9 U/L (<35) 11/05/20 00:51 Alkaline Phosphatase 71 U/L (38-126) 11/05/20 00:51 Creatine Kinase 70 U/L (30-135) 11/05/20 00:51 CK-MB (CK-2) < 0.22 ng/mL (<4.55) 11/05/20 00:51 Troponin I < 0.012 ng/mL 11/05/20 10:17 Total Protein 7.4 g/dL (6.3-8.2) 11/05/20 00:51 Albumin 4.0 g/dL (3.5-5.0) 11/05/20 00:51 Triglycerides 75 mg/dL (<150) 11/05/20 10:17 Cholesterol 134.23 mg/dL (0-200) 11/05/20 10:17 LDL Cholesterol Direct 76 mg/dL (<100) 11/05/20 10:17 VLDL Cholesterol 15.0 mg/dL (10-31) 11/05/20 10:17 HDL Cholesterol 43 mg/dL (>40) 11/05/20 10:17 Serum HCG, Qual NEGATIVE (NEGATIVE) 11/05/20 00:51 12 1211/05/20 00:51 03:46 10:17 CK-MB (CK-2) < 0.22 Troponin I < 0.012 < 0.012 < 0.012 Impressions: Chest X-Ray 11/05/20 00:00 IMPRESSION: No acute process. No significant interval change. Plan Plan of Treatment: - discharged on aspirin - follow up with Dr. Delgado - to come back to the ED if chest pain recurs. Stroke Is this a Stroke Patient?: No Acute Heart Failure Is this a Heart Failure Patient?: No
== END 2020-11-05 14:39 | disposition home or self-care (01) ==
LOC: ER 23:34 → EH 11-05 05:19 → 4W 11-05 06:25
PROVIDERS: ADMIT Student in an Organized Health Care Education/Training Program; ATTEND Internal Medicine
DX: R07.89 Other chest pain (principal); I10 Essential (primary) hypertension; E78.5 Hyperlipidemia, unspecified; F17.210 Nicotine dependence, cigarettes, uncomplicated; F31.9 Bipolar disorder, unspecified; E66.9 Obesity, unspecified; Z68.34 Body mass index [BMI] 34.0-34.9, adult; Z79.899 Other long term (current) drug therapy; Z98.890 Other specified postprocedural states; Z85.848 Personal history of malignant neoplasm of other parts of nervous tissue
CPT/HCPCS: 93005; 99285; 36415; 82553; 82550; 84703; 85025; 80053; 84484; 83036; 80061; 71046; 93010; 99406; G0378 ×2; A9270 ×3; J1650

== ENCOUNTER 2020-12-08 17:22 | Emergency (ER) | payer MEDICARE, MEDICAID ==
--- NOTE | 2020-12-08 18:02 | ER Document Report ---
ED Medical Screen (RME) - General Chief Complaint: Palpitations Stated Complaint: PALPITATIONS Time Seen by Provider: 12/08/20 17:53 Primary Care Provider: WAQAR DEVRIES PA [Primary Care Provider] - Follow up as needed Mode of Arrival: Ambulatory Information source: Patient Notes: HPI; 25-year-old female presents to the emergency room complaining of worsening persistent palpitations with chest pain that radiates to her left arm and dizziness for the past 3 days. Describes the chest pain as a ache. Denies any nausea, vomiting, no diaphoresis. Patient states she does have an appointment this coming week with a sound designer as she has already had a stress test, and echo, and a heart rhythm monitor. Patient states she has had palpitations off and on for the past year but they have now more persistent than they have been in the past. States that she had the cardiac work-up for chest pain but not for palpitations. Denies any thyroid disorder. PE: Alert and oriented x3. Lungs: Clear to auscultation without rales, rhonchi, wheezes. Heart: Tachycardic without murmurs, rubs, gallops. I have greeted and performed a rapid initial assessment of this patient. A comprehensive ED assessment and evaluation of the patient, analysis of test results and completion of the medical decision making process will be conducted by additional ED providers. I have specifically instructed the patient or family members with the patient to immediately return to any nursing staff should anything change in the patient's condition or with their chief complaint. TRAVEL OUTSIDE OF THE [place] IN LAST 30 DAYS: No - Related Data Allergies/Adverse Reactions: No Known Allergies Allergy (Verified 12/08/20 17:56) Past Medical History - Past Medical History Cardiac Medical History: Reports: Hx Hypertension Pulmonary Medical History: Reports: Hx Asthma Psychiatric Medical History: Reports: Hx Bipolar Disorder, Hx Depression Past Surgical History: Reports: Hx Section, Hx Orthopedic Surgery Doctor's Discharge - Discharge Referrals: WAQAR DEVRIES PA [Primary Care Provider] - Follow up as needed
[2020-12-08 18:27] LABS: ABSOLUTE BASOPHILS # (AUTO) 0.1 10^3/uL (0.0-0.2); ABSOLUTE EOSINOPHILS # (AUTO) 0.3 10^3/uL (0.0-0.6); ABSOLUTE LYMPHOCYTES (AUTO) 4.3 10^3/uL (0.5-4.7); ABSOLUTE MONOCYTES (AUTO) 0.7 10^3/uL (0.1-1.4); ABSOLUTE NEUT (AUTO) 7.1 10^3/uL (1.7-8.2); BASOPHILS % (AUTO) 1.2 % (0-2); EOSINOPHILS % (AUTO) 2.2 % (0-6); HEMATOCRIT 40.8 % (36.0-47.0); HEMOGLOBIN 12.8 g/dL (12.0-15.5); LYMPHOCYTES % (AUTO) 34.3 % (13-45); MEAN CORPUSCULAR HEMOGLOBIN 21.2 pg (27.0-33.4); MEAN CORPUSCULAR HGB CONC 31.4 g/dL (32.0-36.0); MEAN CORPUSCULAR VOLUME 68 fl (80-97); PLATELET COUNT 280 10^3/uL (150-450); RED BLOOD COUNT 6.04 10^6/uL (3.72-5.28); RED CELL DISTRIBUTION WIDTH 16.1 % (11.5-14.0); SEGMENTED NEUTROPHILS % (AUTO) 56.3 % (42-78); TOTAL CELLS COUNTED % (AUTO) 100 %; WHITE BLOOD COUNT 12.5 10^3/uL (4.0-10.5)
--- NOTE | 2020-12-08 18:31 | RADIOLOGY REPORT (SQ) ---
EXAM DESCRIPTION: CHEST 2 VIEWS IMAGES COMPLETED DATE/TIME: 12/08/2020 6:18 pm REASON FOR STUDY: chest pain COMPARISON: 11/05/2020. EXAM PARAMETERS: NUMBER OF VIEWS: two views TECHNIQUE: Digital Frontal and Lateral radiographic views of the chest acquired. RADIATION DOSE: NA LIMITATIONS: none FINDINGS: LUNGS AND PLEURA: Minimal chronic scarring in the left lung base. No opacities, masses or pneumothorax. No pleural effusion. MEDIASTINUM AND HILAR STRUCTURES: No masses or contour abnormalities. HEART AND VASCULAR STRUCTURES: Heart normal size. No evidence for failure. BONES: No acute findings. Chronic deformity of the posterior left ribs, possibly due to previous poli neisha. HARDWARE: Surgical clips left of midline. OTHER: No other significant finding. IMPRESSION: NO ACUTE RADIOGRAPHIC FINDING IN THE CHEST. TECHNICAL DOCUMENTATION: JOB ID: [id number] 2010 [employer]- All Rights Reserved Reading location - IP/workstation name: [email or web address]
[2020-12-08 18:50] LABS: ALBUMIN 3.7 g/dL (3.5-5.0); ALKALINE PHOSPHATASE 77 U/L (38-126); ANION GAP 3 (5-19); ASPARTATE AMINO TRANSFERASE 15 U/L (14-36); BILIRUBIN,DIRECT 0.2 mg/dL (0.0-0.4); BILIRUBIN,TOTAL 0.3 mg/dL (0.2-1.3); BLOOD UREA NITROGEN 7 mg/dL (7-20); CALCIUM 9.6 mg/dL (8.4-10.2); CARBON DIOXIDE 30 mmol/L (22-30); CHLORIDE 107 mmol/L (98-107); GLUCOSE 104 mg/dL (75-110); POTASSIUM 4.4 mmol/L (3.6-5.0)
[2020-12-08] MEDS ORDERED: NORMAL SALINE 1000 ML 1,000 ML IV ONE (21:10)
--- NOTE | 2020-12-08 21:19 | EKG REPORT ---
SEVERITY:- ABNORMAL ECG - SINUS RHYTHM ABNRM R PROG, CONSIDER ASMI OR LEAD PLACEMENT : Confirmed by: Timmy Carrera MD 08-Dec-2020 21:18:40
--- NOTE | 2020-12-08 21:20 | ER Document Report ---
Entered by ROJAS CASTILLO SCRIBE 12/08/202116 Acting as scribe for:LILIAN AZEVEDO IV, MD ED Cardiac - General Chief Complaint: Palpitations Stated Complaint: PALPITATIONS Time Seen by Provider: 12/08/20 17:53 Primary Care Provider: WAQAR DEVRIES PA [Primary Care Provider] - Follow up as needed Mode of Arrival: Ambulatory Information source: Patient Notes: This 45 year old female patient presents to the emergency department today with complaints of heart palpitations with associated dizziness for the last few days. Patient reports that there is no specific activity that brings about these symptoms that she can think of. She reports she can just be sitting down watching TV when she feels palpitations and gets dizzy. Patient mentions she drinks about 3 bottles of water a day. TRAVEL OUTSIDE OF THE [place] IN LAST 30 DAYS: No - Related Data Allergies/Adverse Reactions: No Known Allergies Allergy (Verified 12/08/20 17:56) Past Medical History - General Information source: Patient - Social History Smoking Status: Current Every Day Smoker Cigarette use (# per day): Yes Frequency of alcohol use: None Drug Abuse: None Lives with: Family Family History: Reviewed & Not Pertinent - Past Medical History Cardiac Medical History: Reports: Hx Hypertension Pulmonary Medical History: Reports: Hx Asthma Psychiatric Medical History: Reports: Hx Bipolar Disorder, Hx Depression Past Surgical History: Reports: Hx Section, Hx Orthopedic Surgery Review of Systems - Review of Systems Constitutional: No symptoms reported EENT: No symptoms reported Cardiovascular: See HPI, Palpitations, Dizziness Respiratory: No symptoms reported Gastrointestinal: No symptoms reported Genitourinary: No symptoms reported Female Genitourinary: No symptoms reported Musculoskeletal: No symptoms reported Skin: No symptoms reported Hematologic/Lymphatic: No symptoms reported Neurological/Psychological: No symptoms reported -: Yes All other systems reviewed and negative Physical Exam - Vital signs Vitals: Resp Pulse Ox 20 100 12/08/20 20:46 12/08/20 20:46 - Notes Notes: Physical Exam: General: Alert, appears well. HEENT: Normocephalic. Atraumatic. PERRL. Extraocular movements intact. Oropharynx clear. Neck: Supple. Non-tender. Respiratory: No respiratory distress. Clear and equal breath sounds bilaterally. Cardiovascular: Regular rate and rhythm. Positive orthostatics. Patient's heart rate goes from 66 in supine position to 86 when standing. Abdominal: Obese. Non-tender. No distension. Normal Bowel Sounds. Back: No gross abnormalities. Extremities: Moves all four extremities. Upper extremities: Normal inspection. Normal ROM. Lower extremities: Normal inspection. No edema. Normal ROM. Neurological: Normal cognition. AAOx4. Normal speech. Psychological: Normal affect. Normal Mood. Skin: Warm. Dry. Normal color. Course - Re-evaluation Re-evalutation: 12/08/20 21:34 Differential diagnosis: Palpitations, orthostatic hypotension, dehydration, electrolyte imbalance, PSVT, hyperthyroidism 12/08/20 22:26 MDM: Patient did have an increase of pulse by 20 bpm going from lying to standing. I think the patient's diagnosis is most consistent with positive orthostatics or dehydration. Patient instructed on increasing her water intake. Results of ED MSE discussed with patient. All questions were answered prior to discharge. Emergency signs and symptoms, reasons to return to the emergency department discussed with patient. - Vital Signs Vital signs: Temp Pulse Resp BP Pulse Ox 18 106/68 100 12/08/20 22:02 12/08/20 22:02 12/08/20 22:02 - Laboratory Results Result Diagrams: 12/08/20 18:10 12/08/20 18:10 Laboratory Results Interpreted: 12/08/20 12/08/20 18:10 18:10 WBC 12.5 H RBC 6.04 H MCV 68 L MCH 21.2 L MCHC 31.4 L RDW 16.1 H Anion Gap 3 L Critical Laboratory Results Reviewed: No Critical Results - Radiology Results Critical Radiology Results Reviewed: No Critical Results - EKG Interpretation by Me Additional EKG results interpreted by me: 12/08/20 21:34 EKG obtained on 12/08/2020 at 1728 hrs. was interpreted by this MD. Findings: Normal sinus rhythm, rate 90, normal axis, P waves preceding QRS complexes, IA interval appears to be within normal limits, QRS complex appears narrow, QTC is 441, there are no obvious patterns of ST segment elevation, depression or reciprocal changes seen to suggest acute myocardial ischemia or infarction. When compared with prior EKG from 11/04/2020 the gross morphology of the 2 EKGs appears similar. Impression: Normal sinus rhythm with nonspecific ST segments 12/08/20 21:36 Discharge - Discharge Clinical Impression: Dehydration, Palpitations with regular cardiac rhythm Condition: Stable Disposition: HOME, SELF-CARE Instructions: Palpitations (Irregular or Rapid Heartrate) ([facility]) Additional Instructions: Return to the Emergency Department without delay if any worse. 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 HOME CARE INSTRUCTIONS & INFORMATION: Thank you for choosing us for your medical needs. We hope you're satisfied with the care you received. After you leave, you must properly care for your problem and, at the same time, observe its progress. Any condition can change. Some illnesses can change rapidly over hours or days. If your condition worsens, return to the Emergency Department or see your physician promptly. ABOUT YOUR X-RAYS AND EKG'S: If you had an EKG or X-rays taken, they have been read by the Emergency Physician. The X-rays and EKG's will also be read by a Radiologist or Medication Manager within 24 hours. If discrepancies are noted, you will be notified by telephone. Please be certain the ED has a correct telephone number & address where you can be reached. Also, realize that some fractures or abnormalities do not show up on initial X-rays. If your symptoms continue, see your physician. ABOUT YOUR LABORATORY TEST: If you had laboratory tests, the results have been reviewed by the Emergency Physician. Some test results (for example cultures) may not be available for several days. You will be contacted if any test result shows you need additional treatment. Please be certain the ED has a correct telephone number and address where you can be reached. ABOUT YOUR MEDICATIONS: You will receive instructions on how to take your medicine on the prescription label you receive. Additional information may be provided by the Pharmacy. If you have questions afterwards, call the ED for clarification or further instructions. Some prescribed medications may cause drowsiness. Do not perform tasks such as driving a car or operating machinery without consulting your Pharmacist. If you feel you need a refill of pain medication, your condition will need re-evaluation. Please do not call for a refill of any medication. ABOUT YOUR SIGNATURE: Signature of this document acknowledges to followin. Understanding that you received emergency treatment and that you may be released before al medical problems are known or treated. Please be certain the ED has a correct phone number & address where you can be reached. 2. Acknowledgement that you will arrange for follow-up care as recommended. 3. Authorization for the Emergency Physician to provide information to your follow-up Physician in order to maximize your care. AT ANY TIME, IF YOUR SYMPTOMS CHANGE SIGNIFICANTLY OR WORSEN OR YOU DEVELOP NEW SYMPTOMS, RETURN TO THE EMERGENCY DEPARTMENT IMMEDIATELY FOR RE-EVALUATION. OUR GOAL IS TO PROVIDE EXCELLENT MEDICAL CARE! WE HOPE THAT WE HAVE MET YOUR EXPECTATIONS DURING YOUR EMERGENCY DEPARTMENT VISIT AND THAT YOU FEEL YOU HAVE RECEIVED EXCELLENT CARE! Dehydration Dehydration can result from vomiting or diarrhea, fever, or decreased intake of fluids. If severe, hospitalization and intravenous fluids may be required. Most cases are treated at home with fluids by mouth. For the next 24 hours, drink lots of clear fluids. In mild cases, this can be soda pop or sports drinks. For more severe dehydration, the doctor may recommend special fluids such as Pedialyte or Lytren. Try to get three liters (3 quarts) of fluid per day. If vomiting occurs, continue to drink the fluids frequently (every 15 to 20 minutes), but in small amounts (one or two ounces). Depending on the type of dehydration, the doctor may prescribe antinausea medicine or potassium replacements. Call the doctor or return for re-examination if you become progressively weak, vomit repeatedly, or have other new symptoms. Referrals: WAQAR DEVRIES PA [Primary Care Provider] - Follow up as needed I personally performed the services described in the documentation, reviewed and edited the documentation which was dictated to the scribe in my presence, and it accurately records my words and actions.
[2020-12-08] MEDS ORDERED: ACETAMINOPHEN 325 MG TABLET PO ONE (21:35)
[2020-12-08 22:44] VITALS: BP 119/83
== END 2020-12-08 22:45 | disposition home or self-care (01) ==
LOC: ER 17:22
DX: E86.0 Dehydration (principal); R00.2 Palpitations; R42 Dizziness and giddiness; F17.210 Nicotine dependence, cigarettes, uncomplicated; I10 Essential (primary) hypertension; J45.909 Unspecified asthma, uncomplicated
CPT/HCPCS: 93005; 99285; 96360; 36415; 84443; 85025; 80053; 84484; 71046; 93010; A9270; J7030